=== PATIENT | male | born 1950 | race Caucasian/White ===

== ENCOUNTER 2018-03-28 11:33 | Inpatient (IN) ==
--- NOTE | 2018-03-28 11:51 | Emergency Department Note ---
Disposition Clinical Impression: Aphasia, Facial droop CVA (cerebral vascular accident) Qualifiers: CVA mechanism: unspecified Qualified Code(s): I63.9 - Cerebral infarction, unspecified Disposition: Admitted As Inpatient Condition: Fair Neuro HPI - General Stated Complaint: stroke symptoms Time Seen by Provider: 03/28/18 11:35 Source: patient, family, EMS Mode of arrival: EMS Limitations: other (speech) Nursing Notes Reviewed: Yes Vital Signs Reviewed: Yes - History of Present Illness HPI Narrative: Patient presents to the ED via EMS and was seen and evaluated immediately upon arrival. Patient is a transfer from the [facility] for possible stroke. Patient was seen at the [facility] today and the patient's sister who is also his power of bag making machine tender states that yesterday morning she noted that he had some left-sided facial puffiness and a slight droop, but think much about it. They had him outside much of the day and later that evening it was worsening that they thought it was just because he was in the sun. She states that they woke up this morning and he was having trouble speaking, slurred speech and aphasia and continued facial droop. They took him to the [facility] who got labs and a head CT. There is no acute stroke, but the patient was continuing to have symptoms. He was sent here for admission MRI and neurology consult. No previous history of CVA. No history of diabetes or coronary artery disease. There is no upper or lower extremity weakness. No fever, chills, chest pain, shortness breath, abdominal pain, nausea, vomiting, diarrhea or rash. Patient has not been on aspirin or statin therapy previously - Related Data Home Medications: Home Medications Medication Instructions Recorded Confirmed Cholecalciferol (D-3) [Vitamin D] 1,000 unit PO DAILY 03/28/18 03/28/18 Folic Acid 1 mg PO DAILY 03/28/18 03/28/18 Gabapentin [Neurontin] 300 mg PO TID 03/28/18 03/28/18 Ipratropium [place] 1 spr NS BID 03/28/18 03/28/18 Metoprolol Succinate [Toprol Xl] 100 mg PO DAILY 03/28/18 03/28/18 Naproxen 500 mg PO BID PRN 03/28/18 03/28/18 Pantoprazole Sodium 40 mg PO DAILY 03/28/18 03/28/18 Potassium Chloride [Klor-Con 10] 20 meq PO DAILY 03/28/18 03/28/18 Allergies/Adverse Reactions: Allergies Allergy/AdvReac Type Severity Reaction Status Date / Time piperacillin [From Zosyn] Allergy See Verified 05/08/17 13:44 Comments Sulfa (Sulfonamide Allergy See Verified 05/08/17 13:44 Antibiotics) Comments tazobactam [From Zosyn] Allergy See Verified 05/08/17 13:44 Comments Review of Systems: As reviewed in the HPI. All other systems reviewed are negative or normal. Past Medical History - Past Medical History Attestation: Yes The following information was validated with the patient. Source: patient Medical history: Reports: GERD, hypertension, other Surgical history: Reports: other Psychiatric history: Reports: no psych history - Social History Smoking Status: Current every day smoker Smokeless Tobacco Status: No Alcohol use: Reports: none, heavy Drug use: Reports: none Physical Exam - General Limitations: no limitations General appearance: alert, in no apparent distress - Head Head exam: atraumatic, normocephalic, normal inspection - Eye Eye exam: Present: normal appearance, PERRL, EOMI - ENT ENT exam: normal exam, mucous membranes dry - Neck Neck exam: Present: normal inspection, full ROM, trachea midline - Chest Chest inspection: Present: normal inspection, symmetric chest wall rise - Respiratory Respiratory exam: Present: normal lung sounds bilaterally - Cardiovascular Cardiovascular exam: Present: regular rate, normal rhythm, normal heart sounds - Abdominal Exam Abdominal exam: Present: soft, Non-Tender. Absent: tenderness, distention, guarding, rebound, rigidity - Extremities Exam Extremities exam: Present: normal inspection, full ROM, normal capillary refill. Absent: tenderness, pedal edema - Expanded Lower Extremity Exam Hip/Pelvis exam: Present: normal inspection, full ROM - Neurological Exam Neurological exam: Present: alert, oriented X3 - Expanded Neurological Exam Patient oriented to: Present: person, place, time Speech: Present: expressive aphasia Cranial nerves: EOM function (II, III, IV, ): Normal, facial sensation (V): Normal, facial palsy (VII): Abnormal Left (mild droop), spinal accessory function (XI): Normal, tongue deviation (XII): Normal Cerebellar function: finger to nose: Normal Motor strength - LUE: 5/5 Motor strength - RUE: 5/5 Motor strength - LLE: 5/5 Motor strength - RLE: 5/5 Upper motor neuron exam: ansley neglect: Absent bilaterally, pronator drift: Absent bilaterally Sensory exam upper extremity: light touch: Normal Sensory exam lower extremity: light touch: Normal Coma Scale Eye Opening: Spontaneous Coma Scale Motor Response: Obeys Commands Coma Scale Verbal Response: Oriented Coma Scale Total: 15 - Skin Skin exam: Present: warm, dry, intact, normal color Course Course Narrative: Patient presenting from the [facility] for admission for stroke rule out. Symptoms started over 24 hours ago and has a negative head CT. Certainly is not a candidate for TPA or thrombectomy. We will admit to the hospitalist service for MRI and carotid ultrasound and medical optimization. Lab work at outside hospital is attached to the patient's chart and included a normal white blood cell count, mild anemia with hemoglobin of 12, normal troponin, normal electrolytes. EKG was normal sinus rhythm at a rate of 92 with otherwise normal intervals and no ischemic changes. Outside hospital. Head CT showed no acute abnormality. - Reevaluation(s) Reevaluation #1: Dr. Watt accepted the patient for admission. Vital Signs Temperature 97.7 F 03/28/18 11:38 Pulse Rate 75 03/28/18 11:38 Respiratory Rate 16 03/28/18 11:38 Blood Pressure 154/89 03/28/18 11:38 O2 Sat by Pulse Oximetry 100 03/28/18 11:38 Temperature 97.7 F 03/28/18 11:38 Pulse Rate 75 03/28/18 11:38 Respiratory Rate 16 03/28/18 11:38 Blood Pressure 154/89 03/28/18 11:38 O2 Sat by Pulse Oximetry 100 03/28/18 11:38 Oxygen Delivery Oxygen Delivery Nasal Cannula NIH Stroke Scale - Level of Consciousness LOC: Alert - LOC Questions LOC Questions: Answers both correctly - LOC Commands LOC Commands: Performs both correctly - Best Gaze Best Gaze: Normal - Visual Visual: No visual loss - Facial Palsy Facial Palsy: Partial, total, or near-total paralysis of lower face - Motor Arms Motor Arm-Left: No drift for 10 seconds Motor Arm-Right: No drift for 10 seconds - Motor Legs Motor Leg-Left: No drift for 5 seconds Motor Leg-Right: No drift for 5 seconds - Limb Ataxia Limb Ataxia: Normal, No Ataxia - Sensory Sensory: Normal - Best Language Best Language: Mild to moderate aphasia. Examiner can identify picture from response - Dysarthria Dysarthria: Mild, slurs some words - Extinction and Inattention Extinction and Inattention: Normal - NIHSS Total Score NIHSS Total Score: 4 TPA Checklist - LKW: 3-4.5 hrs Add. Warnings/Precautions Patient/family understanding: The patient/family members have been counseled and understood the risk, benefit , and alternatives of treatment.
--- NOTE | 2018-03-28 12:22 | Emergency Department Note ---
Disposition Clinical Impression: Aphasia, Facial droop CVA (cerebral vascular accident) Qualifiers: CVA mechanism: unspecified Qualified Code(s): I63.9 - Cerebral infarction, unspecified Disposition: Admitted As Inpatient Condition: Fair General Adult HPI - General Chief complaint: ED Altered Mental Status Stated complaint: stroke symptoms Time Seen by Provider: 03/28/18 11:35 Source: patient, family, EMS Mode of arrival: EMS Limitations: other (speech) - History of Present Illness Pain Scale: 0 - Related Data Home Medications Medication Instructions Recorded Confirmed Cholecalciferol (D-3) [Vitamin D] 1,000 unit PO DAILY 03/28/18 03/28/18 Folic Acid 1 mg PO DAILY 03/28/18 03/28/18 Gabapentin [Neurontin] 300 mg PO TID 03/28/18 03/28/18 Ipratropium [place] 1 spr NS BID 03/28/18 03/28/18 Metoprolol Succinate [Toprol Xl] 100 mg PO DAILY 03/28/18 03/28/18 Naproxen 500 mg PO BID PRN 03/28/18 03/28/18 Pantoprazole Sodium 40 mg PO DAILY 03/28/18 03/28/18 Potassium Chloride [Klor-Con 10] 20 meq PO DAILY 03/28/18 03/28/18 Allergies Allergy/AdvReac Type Severity Reaction Status Date / Time piperacillin [From Zosyn] Allergy See Verified 05/08/17 13:44 Comments Sulfa (Sulfonamide Allergy See Verified 05/08/17 13:44 Antibiotics) Comments tazobactam [From Zosyn] Allergy See Verified 05/08/17 13:44 Comments Past Medical History - Past Medical History Medical history: Reports: GERD, hypertension, other Surgical history: Reports: other Psychiatric history: Reports: no psych history - Social History Smoking Status: Current every day smoker Smokeless Tobacco Status: No Alcohol use: Reports: none, heavy Drug use: Reports: none Physical Exam - General Limitations: other (speech) General appearance: lethargic Course Vital Signs Temperature 97.7 F 03/28/18 11:38 Pulse Rate 75 03/28/18 11:38 Respiratory Rate 16 03/28/18 11:38 Blood Pressure 154/89 03/28/18 11:38 O2 Sat by Pulse Oximetry 100 03/28/18 11:38 Temperature 97.4 F L 03/28/18 15:48 Pulse Rate 72 03/28/18 15:48 Respiratory Rate 18 03/28/18 15:48 Blood Pressure 135/87 03/28/18 15:48 O2 Sat by Pulse Oximetry 99 03/28/18 15:48 Oxygen Delivery Oxygen Delivery Nasal Cannula Medical Decision Making - Lab Data Result diagrams: 03/28/18 14:06 03/28/18 14:06 Attestation Statement - Attestation Attestation: I examined this patient and my medical decision-making was reviewed with the LOOM CHANGER/PA/Advanced Practice Nurse/Resident Physician. I agree with the documented findings, disposition and treatment plan as described except to the extent set forth below. I did see the patient upon arrival and spoke with the paramedics as well as the patient's sister he does have slurred speech since yesterday so he is not a thrombolytic candidate and the patient was initially evaluated at the [facility]. Head CT does not show any signs of hemorrhage. Patient will be admitted for further evaluation and management of acute stroke. 1222 I did review the patient's EKG showing normal sinus rhythm with a rate of approximately 88 bpm, this is a normal sinus rhythm. I do not see any ischemic changes or evidence of significant arrhythmia 1223
[2018-03-28] MEDS ORDERED: Naloxone 0.4 MG/ML INJ IVP PRN (12:52)
[2018-03-28 14:38] LABS: Basophils % 0.6 %; Eosinophils % 0.6 %; Hematocrit 36.6 % (37.5-50.1); Hemoglobin 11.9 g/dL (12.9-16.9); Immature Granulocytes % 0.4 % (0-4); Lymphocytes # 1.8 K/mcL (0.6-4.6); Lymphocytes % 33.7 %; Mean Corpuscular HGB Conc 32.5 g/dL (31.6-35.5); Mean Corpuscular Hemoglobin 27.6 pg (28.0-33.3); Mean Corpuscular Volume 84.9 fL (83.0-100.0); Mean Platelet Volume 11.5 fL (9.4-12.4); Monocytes # 0.5 K/mcL (0.0-1.3); Monocytes % 9.2 %; Neutrophils # 2.9 K/mcL (1.6-8.9); Platelet Count 154 K/mcL (140-400); Red Blood Count 4.31 M/mcL (4.19-5.50); Red Cell Distribution Width 14.5 % (11.5-14.5); Segmented Neutrophils % 55.5 %
[2018-03-28 14:45] LABS: BUN/Creatinine Ratio 24 (6-26); Blood Urea Nitrogen 26 mg/dL (8-23); Calcium 9.3 mg/dL (8.6-10.3); Carbon Dioxide 26 mEq/L (23-29); Chloride 105 mEq/L (98-107); Glucose 86 mg/dL (70-105); Osmolality,Calculated 286 (280-300); Potassium 4.8 mEq/L (3.5-5.1); Sodium 136 mEq/L (136-145); eGFR For African Americans > 60 (> 60); eGFR For Non-African Americans > 60 (> 60)
--- NOTE | 2018-03-28 15:39 | Internal Med History&Physical ---
Date of Encounter: 03/29/18 Time of Encounter: 15:30 Internal Medicine - H&P: HPI Chief complaint: slurred speech and facial droop sinc yesterday morning History of present illness: Mr. Daigle is a 68 year old male with pmh of hypertension, partial deafness presenting with complaints of slurred speech since yesterday and left facial droop this morning. Histroy was provided by patient's sister due to patient's partial deafness. she notes that they went to the [facility] and when they returned, he complained of feeling warm and sweating and she noticed what she thought was a puffy face and thought his speech was slightly slurred, but she says she thought it was because he had been in the sunlight all day. when he woke up this morning she noticed he had a facial droop and she immediately suspected he had had a stroke and took him to the ER at the [facility], from where he was transferred here. She also noticed he has been having coughing and difficulty swallowing in last 24hrs. 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) Psychiatric history: no psych history - Past Surgical History Surgical History: other Additional surgical history: toe removed, ear surgery , port in chest (removed) - Social History Smoking Status: Current every day smoker Smokeless Tobacco Status: No Alcohol use: none, heavy Drug use: none Internal Medicine - H&P: Meds Cholecalciferol (D-3) [Vitamin D] 1,000 unit PO DAILY 03/28/18 [History] Folic Acid 1 mg PO DAILY 03/28/18 [History] Gabapentin [Neurontin] 300 mg PO TID 03/28/18 [History] Ipratropium [place] 1 spr NS BID 03/28/18 [History] Metoprolol Succinate [Toprol Xl] 100 mg PO DAILY 03/28/18 [History] Naproxen 500 mg PO BID PRN 03/28/18 [History] Pantoprazole Sodium 40 mg PO DAILY 03/28/18 [History] Potassium Chloride [Klor-Con 10] 20 meq PO DAILY 03/28/18 [History] 3 Allergy/AdvReac Type Severity Reaction Status Date / Time piperacillin [From Zosyn] Allergy See Verified 05/08/17 13:44 Comments Sulfa (Sulfonamide Allergy See Verified 05/08/17 13:44 Antibiotics) Comments tazobactam [From Zosyn] Allergy See Verified 05/08/17 13:44 Comments All Systems PM: A 10-system review of systems was performed and is negative for pertinent findings except as documented above in the HPI. - Constitutional Constitutional: excessive sweating, fatigue - EENT Eyes: no change in vision, no discharge, no pain, no photophobia Ears: no ear discharge, no ear pain, no tinnitus Nose, mouth and throat: no dysphagia, no nasal discharge, no neck pain, no sore throat - Cardiovascular Cardiovascular ROS IM: no chest pain, no diaphoresis, no dyspnea, no lightheadedness, no palpitations, no syncope - Respiratory Respiratory: no cough, no dyspnea, no wheezing, no excessive phlegm production - Gastrointestinal Gastrointestinal: no abdominal pain, no diarrhea, no hematemesis, no hematochezia, no melena, no nausea, no vomiting - Musculoskeletal Musculoskeletal ROS IM: no numbness, no tingling - Integumentary Integumentary IM: no rash, no unusual bruising - Neurological Neurological ROS: abnormal speech, no confusion, no convulsions, no focal weakness, no numbness, no tingling, no tremor(s) - Hematologic/Lymphatic Hematologic/Lymphatic: no easy bruising - Constitutional Vitals: Temp Pulse Resp BP Pulse Ox 97.6 F 79 16 158/101 100 03/28/18 14:17 03/28/18 14:17 03/28/18 14:17 03/28/18 14:17 03/28/18 14:17 General appearance: Present: A&O X 3 - Head Head exam: Present: atraumatic, normocephalic - Eye Eye exam: Present: PERRL, conjuntiva pink, sclera anicteric Pupils: Present: PERRL - Neck Neck exam general surgery: Present: supple, trachea midline. Absent: lymphadenopathy - Respiratory Respiratory exam: Present: CTAB. Absent: accessory muscle use, rales, rhonchi, wheezes - Cardiovascular Cardiovascular exam: Present: RRR, +S1, +S2. Absent: diastolic murmur, gallop, rubs, systolic murmur - GI/Abdominal GI/Abdominal exam: Present: normal bowel sounds, soft, no peritoneal signs. Absent: distended, tenderness - Extremities Exam Extremities exam: Present: warm, radial pulses palpable and symmetrical. Absent : calf tenderness, cyanotic, pedal edema - Neurological Exam Neurological exam: Present: CN II-XII intact, oriented X3, no focal deficits, facial droop. Absent: pronater drift, speech deficit Additional comments: left sided facial droop - Skin Skin exam: Present: dry, intact Internal Med - H&P Results - Labs CBC & Chem 7: 03/29/18 04:17 03/29/18 04:17 Labs: Short CBC 03/28/18 Range/Units 14:06 WBC 5.2 (4.3-11.1) K/mcL Hgb 11.9 L (12.9-16.9) g/dL Hct 36.6 L (37.5-50.1) % Plt Count 154 (140-400) K/mcL Neutrophils # 2.9 (1.6-8.9) K/mcL BMP 03/28/18 14:06 Sodium 136 Potassium 4.8 Chloride 105 Carbon Dioxide 26 BUN 26 H Creatinine 1.10 Glucose 86 Calcium 9.3 - Impressions ITS Impressions Brain MRI 03/28/18 12:58 IMPRESSION: Small acute infarct within the right posterior limb of the internal capsule. Stable moderate chronic small vessel ischemic disease with associated moderate cerebral atrophy. Left posterior fossa arachnoid cyst not significantly changed. D/ / 03/28/2018 14:10:25 Jarrett Stevens MD / Margi Castellanos Interpreting Provider: Jarrett Stevens MD - Assessment and plan (1) CVA (cerebral vascular accident) Current Visit: Yes Status: Acute Assessment and plan: Acute CVA with right posterior limb internal capsule infacrt on MRI. Follow neurology recommendations. F/U carotid ultrasound and 2D echo. On aspirin and statin Qualifiers: CVA mechanism: unspecified Qualified Code(s): I63.9 - Cerebral infarction, unspecified (2) Dysphagia as late effect of cerebrovascular accident (CVA) Current Visit: Yes Status: Acute Assessment and plan: Currently NPo and on D5. Speech therapy consulted (3) Hypertension Current Visit: Yes Status: Acute Assessment and plan: will hold off starting any hypertensives for now to preserve cerebral perfusion until patient is seen by neuro Qualifiers: Qualified Code(s): I10 - Essential (primary) hypertension (4) DVT prophylaxis Current Visit: Yes Status: Acute Assessment and plan: Heparin sc - Time Spent With Patient Total time spent is greater than 50% in coordination of care (as documented) at patient's floor/unit and/or counseling patient:
[2018-03-28] MEDS: Gabapentin 300 MG CAPSULE PO SCH ×2 (15:56→20:55)
[2018-03-28] MEDS: Aspirin 81 MG TAB.CHEW PO SCH ×2 (15:56→18:54)
[2018-03-28] MEDS: D5% in 0.45% NACL 1,000 ML IVC SCH (16:20)
--- NOTE | 2018-03-28 17:10 | Neurology - Consult Note ---
Date of Encounter: 03/28/18 Time of Encounter: 17:08 Assessment and Plan (1) CVA (cerebral vascular accident) Current Visit: Yes Status: Acute Symptoms and signs are consistent with small vessel lacunar infarct. Patient needs stroke work up including carotid artery duplex, echocardiography, continue statin therapy. Agree with aspirin 81mg daily. PT evaluation. Qualifiers: CVA mechanism: unspecified Qualified Code(s): I63.9 - Cerebral infarction, unspecified History of Present Illness Chief complaint: left sided weakness HPI: Mr. Daigle is a 68 year old male with PMH significant for chronic lower back pain, HTN who developed slurred speech, left facial droop started yesterday so his symptoms started more than 24 hours already and he is considered not a tPA thrombolysis therapy. he is admitted onto the medical floor for further evaluation and treatment. MRI of brain did showed acute lacunar infarct adjacent to the right posterior limb at the thalamus. 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) Psychiatric history: no psych history - Past Surgical History Surgical History: other Additional surgical history: toe removed, ear surgery , port in chest (removed) - Social History Smoking Status: Current every day smoker Smokeless Tobacco Status: No Alcohol use: none, heavy Drug use: none - Family History Sister Living Status: Still Living Hx Family Cancer: Yes (Uterine) Mother Living Status: Hx Family Cancer: Yes (Skin) Medications and Allergies Cholecalciferol (D-3) [Vitamin D] 1,000 unit PO DAILY 03/28/18 [History] Folic Acid 1 mg PO DAILY 03/28/18 [History] Gabapentin [Neurontin] 300 mg PO TID 03/28/18 [History] Ipratropium [place] 1 spr NS BID 03/28/18 [History] Metoprolol Succinate [Toprol Xl] 100 mg PO DAILY 03/28/18 [History] Naproxen 500 mg PO BID PRN 03/28/18 [History] Pantoprazole Sodium 40 mg PO DAILY 03/28/18 [History] Potassium Chloride [Klor-Con 10] 20 meq PO DAILY 03/28/18 [History] 3 Allergy/AdvReac Type Severity Reaction Status Date / Time piperacillin [From Zosyn] Allergy See Verified 05/08/17 13:44 Comments Sulfa (Sulfonamide Allergy See Verified 05/08/17 13:44 Antibiotics) Comments tazobactam [From Zosyn] Allergy See Verified 05/08/17 13:44 Comments All Systems: The remainder of the systems were reviewed and are negative Physical Examination - Vital Signs Vital Signs: Initial Vital Signs Temp Pulse Resp BP Pulse Ox 97.7 F 75 16 154/89 100 03/28/18 11:38 03/28/18 11:38 03/28/18 11:38 03/28/18 11:38 03/28/18 11:38 - Neurologic Detailed motor examination: full strength in all major muscle groups Motor examination - right side: 01/26: deltoids, biceps, triceps, wrist flexion, wrist extension, supervisor communications and signals, hip flexors, tibialis Anterior, quadriceps, toe extension (EHL), plantarflexion Motor examination - left side: 5: deltoids, biceps, triceps, wrist flexion, wrist extension, hip flexors, supervisor communications and signals, quadriceps, tibialis Anterior, toe extension (EHL), plantarflexion Mental Status Examination: awake, alert, oriented to person, oriented to place, oriented to time, follows commands appropriately, answers questions appropriately, no agnosia, no aphasia, no aproxia Cranial nerve examination: PERRL, EOMI, visual rebollar intact, corneal reflexes brisk symmetrically, sensory to face intact, mastication intact, no facial asymmetry is present, no dysarthria, hearing is intact symmetrically, soft palate elevates bilaterally upon phonation, gag reflex intact, flexes SCM and trapezius muscles symmetrically with full power, tongue protrudes midline, no atrophy or facial fasiculations present Cerebellar examination: no dysmetria, performs finger to nose and heel to carmona symmetrically without ataxia, no gait ataxia, no truncal ataxia, no difficulty with rapid alternating movements Results - Laboratory Findings CBC and BMP: 03/28/18 14:06 03/28/18 14:06 Abnormal lab findings: Abnormal lab results Hgb 11.9 g/dL (12.9-16.9) L 03/28/18 14:06 Hct 36.6 % (37.5-50.1) L 03/28/18 14:06 MCH 27.6 pg (28.0-33.3) L 03/28/18 14:06 BUN 26 mg/dL (8-23) H 03/28/18 14:06 Consult Discharge Plan - Plan [facility]errals: [facility]Primary Care Provider[facility] -
[2018-03-28] MEDS: (Ipratropium Bromide [Ipratropium Bromide] 1 SPR) NS SCH (20:55)
[2018-03-29 05:12] LABS: Basophils % 0.7 %; Eosinophils # 0.1 K/mcL (0.0-0.6); Eosinophils % 1.2 %; Hematocrit 36.4 % (37.5-50.1); Hemoglobin 11.9 g/dL (12.9-16.9); Immature Granulocytes % 0.2 % (0-4); Lymphocytes % 32.6 %; Mean Corpuscular HGB Conc 32.7 g/dL (31.6-35.5); Mean Corpuscular Hemoglobin 27.5 pg (28.0-33.3); Mean Corpuscular Volume 84.1 fL (83.0-100.0); Mean Platelet Volume 11.6 fL (9.4-12.4); Monocytes # 0.5 K/mcL (0.0-1.3); Monocytes % 8.4 %; Neutrophils # 3.4 K/mcL (1.6-8.9); Platelet Count 156 K/mcL (140-400); Red Blood Count 4.33 M/mcL (4.19-5.50); Red Cell Distribution Width 14.4 % (11.5-14.5); Segmented Neutrophils % 56.9 %
[2018-03-29 05:24] LABS: BUN/Creatinine Ratio 24 (6-26); Blood Urea Nitrogen 20 mg/dL (8-23); Calcium 9.2 mg/dL (8.6-10.3); Carbon Dioxide 23 mEq/L (23-29); Chloride 106 mEq/L (98-107); Glucose 100 mg/dL (70-105); Magnesium 1.7 mg/dL (1.6-2.6); Osmolality,Calculated 285 (280-300); Phosphorous 3.8 mg/dL (2.7-4.5); Potassium 4.2 mEq/L (3.5-5.1); Sodium 136 mEq/L (136-145); eGFR For African Americans > 60 (> 60); eGFR For Non-African Americans > 60 (> 60)
[2018-03-29] MEDS: Aspirin 81 MG TAB.CHEW PO SCH (08:20)
[2018-03-29] MEDS: Metoprolol XL (24 HR) Succ 50 MG TAB.ER.24H PO SCH (08:21)
[2018-03-29] MEDS: Cholecalciferol (D-3) 1,000 UNIT TABLET PO SCH (08:21)
[2018-03-29] MEDS: Gabapentin 300 MG CAPSULE PO SCH ×3 (08:21→20:31)
[2018-03-29] MEDS: Folic Acid 1 MG TABLET PO SCH (08:21)
--- NOTE | 2018-03-29 09:02 | Neurology Progress Note ---
Date of Encounter: 03/29/18 Time of Encounter: 09:00 Assessment and Plan (1) CVA (cerebral vascular accident) Current Visit: Yes Status: Acute Symptoms and signs are consistent with small vessel lacunar infarct. Patient needs stroke work up including carotid artery duplex, (already done) Will obtain CTA of neck. If ICA stenosis more than 70% then will consult vascular. If less than 70% will continue medical treatment only. Await echocardiography, continue statin therapy. Agree with aspirin 81mg daily. PT evaluation. Qualifiers: CVA mechanism: unspecified Qualified Code(s): I63.9 - Cerebral infarction, unspecified Subjective Principal diagnosis: CVA Interval history: Patient seen and examined. Symptoms are stable. Still slightly dysarthric. No new complaints. Is on Aspirin 81mg daily. Carotid artery duplex showed bilateral ICA 60-79% stenosis. Echocardiography pending. Objective - Constitutional Vitals: Temp Pulse Resp BP Pulse Ox 97.7 F 85 20 126/82 100 03/29/18 07:08 03/29/18 07:08 03/29/18 07:08 03/29/18 07:08 03/29/18 07:08 - Neurological Exam Motor Examination: Present: full strength in all major muscle groups Motor examination - right side: 5/5: deltoids, biceps, triceps, wrist flexion, wrist extension, retail merchandising specialist, hip flexors, tibialis Anterior, quadriceps, toe extension (EHL), plantarflexion Motor examination - left side: 5/5: deltoids, biceps, triceps, wrist flexion, wrist extension, hip flexors, retail merchandising specialist, quadriceps, tibialis Anterior, toe extension (EHL), plantarflexion Mental Status Examination: Present: awake, alert, oriented to person, oriented to place, oriented to time, follows commands appropriately, answers questions appropriately, no agnosia, no aphasia, no aproxia Cranial nerve examination: Present: PERRL, EOMI, visual rebollar intact, corneal reflexes brisk symmetrically, sensory to face intact, mastication intact, no facial asymmetry is present (Left facial droop noted), no dysarthria, hearing is intact symmetrically, soft palate elevates bilaterally upon phonation, gag reflex intact, flexes SCM and trapezius muscles symmetrically with full power, tongue protrudes midline, no atrophy or facial fasiculations present Cerebellar examination: Present: no dysmetria, performs finger to nose and heel to carmona symmetrically without ataxia, no gait ataxia, no truncal ataxia, no difficulty with rapid alternating movements Results - Laboratory Findings CBC and BMP: 03/29/18 04:17 03/29/18 04:17 Abnormal lab findings: Abnormal lab results Hgb 11.9 g/dL (12.9-16.9) L 03/29/18 04:17 Hct 36.4 % (37.5-50.1) L 03/29/18 04:17 MCH 27.5 pg (28.0-33.3) L 03/29/18 04:17 LDL Cholesterol, Calc 102 mg/dL (0-99) H 03/29/18 04:17 HDL Cholesterol 31 mg/dL (40-59) L 03/29/18 04:17 Cholesterol/HDL Ratio 5.0 (0-4.9) H 03/29/18 04:17 - Diagnostic Findings Additional findings: Bilateral 60-79% stenosis. Right ICA distal and Left ICA proximal to distal. Higher velocities on the Left. Recommendations: Risk Factor Modification, Medical Therapy, and Follow up exam 12 months. Findings Carotid Duplex: Right: There is nonstenotic plaque in the right mid common carotid artery. There is nonstenotic plaque in the right distal common carotid artery. There is smooth heterogeneous plaque. There is nonstenotic plaque in the right bifurcation. There is smooth heterogeneous plaque. There is nonstenotic plaque in the right proximal internal carotid artery. There is irregular heterogeneous plaque. There is 40-59% stenosis in the right mid internal carotid artery. There is irregular heterogeneous plaque. There is 60-79% stenosis in the right distal internal carotid artery. There is irregular heterogeneous plaque. Left: There is nonstenotic plaque in the left proximal common carotid artery. There is nonstenotic plaque in the left mid common carotid artery. There is smooth heterogeneous plaque. There is nonstenotic plaque in the left distal common carotid artery. There is smooth heterogeneous plaque. There is nonstenotic plaque in the left bifurcation. There is smooth heterogeneous plaque. There is 60-79% stenosis in the left proximal internal carotid artery. There is smooth heterogeneous plaque. There is 60-79% stenosis in the left mid internal carotid artery. There is smooth heterogeneous plaque. There is 60-79% stenosis in the left distal internal carotid artery. There is smooth heterogeneous plaque. Prior Study: No prior study available for comparison. Risk Factor Modification, Medical Therapy, and Follow up exam 12 months. Carotid Results Right PSV EDV Assessment Proximal CCA 117 30 Mid CCA 75 18 Non Stenotic Plaque Distal CCA 93 24 Non Stenotic Plaque Bifurcation 74 20 Non Stenotic Plaque Proximal ICA 103 23 Non Stenotic Plaque Mid ICA 114 43 40-59% stenosis Distal ICA 147 45 60-79% stenosis ECA 103 11 Vertebral Artery 89 17 Antegrade Flow Left PSV EDV Assessment Proximal CCA 94 21 Non Stenotic Plaque Mid CCA 113 26 Non Stenotic Plaque Distal CCA 95 21 Non Stenotic Plaque Bifurcation 92 21 Non Stenotic Plaque Proximal ICA 240 68 60-79% stenosis Mid ICA 177 50 60-79% stenosis Distal ICA 151 46 60-79% stenosis ECA 101 17 Vertebral Artery 36 12 Antegrade Flow Ratio's Right ICA/CCA Ratio: 1.96 ICA/CCA Values: 147/75 Left ICA/CCA Ratio: 2.12 ICA/CCA Values: 240/113 Updated by Manolo Mejia MD on 03/29/2018 7:24:22 AM electronically signed on 03/29/2018 7:24:57 AM with status of Final MRI OF THE BRAIN WITHOUT CONTRAST 03/28/2018 1:51 pm TECHNIQUE: Multiplanar multisequence MRI of the brain was performed without the administration of intravenous contrast. COMPARISON: 03/21/2016 HISTORY: ORDERING SYSTEM PROVIDED HISTORY: acute cva Additional tech notes: cfs @ 1305 - crl FINDINGS: INTRACRANIAL STRUCTURES/VENTRICLES: Small acute infarct is identified within the right posterior limb of the internal capsule. Moderate chronic small vessel ischemic disease is identified within the periventricular white matter. There is moderate cerebral atrophy. Left posterior fossa arachnoid cyst is identified. The left cerebral hemisphere additionally appears to be atrophic. No mass effect or midline shift. No evidence of an acute intracranial hemorrhage. The ventricles and sulci are normal in size and configuration. The sellar/suprasellar regions appear unremarkable. The normal signal voids within the major intracranial vessels appear maintained. ORBITS: The visualized portion of the orbits demonstrate no acute abnormality. SINUSES: The visualized paranasal sinuses and mastoid air cells are well aerated. BONES/SOFT TISSUES: The bone marrow signal intensity appears normal. The soft tissues demonstrate no acute abnormality. MR/MR head/brain wo con IMPRESSION: Small acute infarct within the right posterior limb of the internal capsule. Stable moderate chronic small vessel ischemic disease with associated moderate cerebral atrophy. Left posterior fossa arachnoid cyst not significantly changed. D/ / 03/28/2018 14:10:25 Jarrett Stevens MD / Margi Castellanos Interpreting Provider: Jarrett Stevens MD Consult Discharge Plan - Plan [facility]errals: [facility] [Primary Care Provider] -
[2018-03-29] MEDS ORDERED: Isovue-370 500 ML INFUS..BTL IV ONE (09:07)
--- NOTE | 2018-03-29 11:57 | Electrocardiograph Report ---
[address] [address] Test Date: 2018-03-28 Pat Name: Arnold Daigle Department: 104 Room: [facility] Gender: M Kiln Charger: DHIRAJ : 1950 Requested By: Chadwick Watt Order Number: [id number] Reading MD: Isaiah Borges Measurements Intervals [place] Rate: 81 P: IN: 0 QRS: 0 QRSD: 0 T: 0 QT: 0 QTc: 0 Interpretive Statements SINUS RHYTHM Electronically Signed On 03-29-2018 11:55:46 EDT by Isaiah Borges
--- NOTE | 2018-03-29 13:03 | Internal Med Progress Note ---
Date of Encounter: 03/29/18 Time of Encounter: 08:30 - Assessment and plan (1) CVA (cerebral vascular accident) Current Visit: Yes Status: Acute Assessment and plan: Acute CVA with right posterior limb internal capsule infarct on MRI. Pt with obvious left facial droop and slurred speech. CTA neck shows 50% stenosis proximal left ICA, extensive irregular atherosclerotic plaque in proximal descending thoracic aorta, severe focal stenosis of left posterior cerebral arteries P2 segment. Echocardiogram shows LVEF of 60-65%, mild LV DD, no significant valvular dysfunction and no PFO noted with agitated saline. Bilateral carotids show 60-79% stenosis, right ICA distal and left ICA proximal to distal Patient has been evaluated by neurology, recommend consult with vascular if ICA stenosis is greater than 70%. Continue aspirin and statin Continue telemetry PT/OT recommend SNF. SS consult in and pending. Continue nectar thin liquids Monitor for safety and falls Qualifiers: CVA mechanism: unspecified Qualified Code(s): I63.9 - Cerebral infarction, unspecified (2) Hypertension Current Visit: Yes Status: Acute Assessment and plan: Pt is not on any oral antihypertensives. Blood pressure is well controlled currently. [place] hold off on starting medications to preserve cerebral function. Continue to monitor pt and vitals. Qualifiers: Hypertension type: unspecified Qualified Code(s): I10 - Essential (primary ) hypertension (3) Dysphagia as late effect of cerebrovascular accident (CVA) Current Visit: Yes Status: Acute Assessment and plan: Speech consulted, ordered nectar thick liquids Continue speech therapy (4) DVT prophylaxis Current Visit: Yes Status: Acute Assessment and plan: Heparin SQ - Time Spent With Patient Total time spent is greater than 50% in coordination of care (as documented) at patient's floor/unit and/or counseling patient: less than 15 minutes - Subjective Interval history: Pt was seen and assessed at 0830. He is alert and awake, oriented, answers questions appropriately. Pt denies headache or blurred vision. Pt has obvious left facial droop and slurred speech. Patient denies chest pain, shortness of breath, abdominal pain, nausea or vomiting. - Constitutional Vitals: Temp Pulse Resp BP Pulse Ox 97.8 F 83 20 158/93 95 03/29/18 11:36 03/29/18 11:36 03/29/18 11:36 03/29/18 11:36 03/29/18 11:36 General appearance: Present: cooperative, A&O X 3, pleasant, no acute distress, answers questions appropriately - Head Head exam: Present: atraumatic, normal inspection, normocephalic - Eye Eye exam: Present: EOMI, normal appearance, conjuntiva pink, sclera anicteric. Absent: nystagmus - Neck Neck exam general surgery: Present: supple, trachea midline. Absent: lymphadenopathy - Respiratory Respiratory exam: Present: CTAB. Absent: accessory muscle use, rales, rhonchi, wheezes - Cardiovascular Cardiovascular exam: Present: RRR, +S1, +S2. Absent: diastolic murmur, gallop, rubs, systolic murmur - GI/Abdominal GI/Abdominal exam: Present: normal bowel sounds, soft, no peritoneal signs. Absent: distended, hepatomegaly, tenderness - Extremities Exam Extremities exam: Present: normal capillary refill, normal inspection, warm, radial pulses palpable and symmetrical. Absent: calf tenderness, cyanotic, pedal edema, tenderness - Neurological Exam Neurological exam: Present: alert, CN II-XII intact, oriented X3, no focal deficits, strengths equal and symetr throughout, facial droop, speech deficit. Absent: motor sensory deficit, pronater drift - Skin Skin exam: Present: dry, intact, normal color, warm. Absent: rash Internal Medicine: Result - Labs CBC & Chem 7: 03/29/18 04:17 03/29/18 04:17 Labs: Short CBC 03/28/18 03/29/18 Range/Units 14:06 04:17 WBC 5.2 6.0 (4.3-11.1) K/mcL Hgb 11.9 L 11.9 L (12.9-16.9) g/dL Hct 36.6 L 36.4 L (37.5-50.1) % Plt Count 154 156 (140-400) K/mcL Neutrophils # 2.9 3.4 (1.6-8.9) K/mcL BMP 03/28/18 03/29/18 14:06 04:17 Sodium 136 136 Potassium 4.8 4.2 Chloride 105 106 Carbon Dioxide 26 23 BUN 26 H 20 Creatinine 1.10 0.83 Glucose 86 100 Calcium 9.3 9.2 - Impressions Impressions Brain MRI 03/28/18 12:58 IMPRESSION: Small acute infarct within the right posterior limb of the internal capsule. Stable moderate chronic small vessel ischemic disease with associated moderate cerebral atrophy. Left posterior fossa arachnoid cyst not significantly changed. D/ / 03/28/2018 14:10:25 Jarrett Stevens MD / Margi Castellanos Interpreting Provider: Jarrett Stevens MD Echocardiogram 03/28/18 13:00 Impressions: LVEF 60-65%. Normal LV chamber size, wall thickness and function. Mild left ventricular diastolic dysfunction. Normal right ventricular structure and function. No evidence of pulmonary hypertension. No significant valvular dysfunction. Negative agitated saline study for intracardiac shunting. Left Ventricular Wall Motion: Rest Echo Findings All wall segments showed normal motion. Findings: Study Quality * Technically adequate exam. ECG Findings * Normal sinus rhythm. Left Ventricle * LVEF 60-65%. * Normal LV chamber size, wall thickness and function. * Mild left ventricular diastolic dysfunction. Right Ventricle * Normal right ventricular structure and function. Left Atrium * Mildly dilated left atrium. Right Atrium * Normal right atrial size. Aortic Valve * Trileaflet aortic valve. * No aortic regurgitation. * No aortic stenosis. Mitral Valve * Normal mitral valve structure and function. * No mitral stenosis. * Trace mitral regurgitation. Tricuspid Valve * Normal tricuspid valve structure and function. * Trace tricuspid regurgitation. * No evidence of pulmonary hypertension. Pulmonic Valve * Pulmonic valve not well visualized. Aorta * Normally sized aortic root. Pericardium * The pericardium appears normal. IVC * Normal IVC dimensions and inspiratory collapse. Pulmonary Artery * Normal visualized portions of the main pulmonary artery. Chest X-Ray 03/28/18 15:21 IMPRESSION: No acute abnormality detected. D/ / Raciel Patel MD / Raciel Patel MD Interpreting Provider: Raciel Patel MD Angiography CT 03/29/18 09:07 IMPRESSION: 1. There is 50% stenosis of the proximal left internal carotid artery. 2. Extensive irregular atherosclerotic plaque in the proximal descending thoracic aorta. 3. Severe focal stenosis of the left posterior cerebral artery P2 segment. D/ /29/2018 11:27:47 Julito Whitehead MD / ra Interpreting Provider: Julito Whitehead MD Neck CTA 03/29/18 09:07 IMPRESSION: 1. There is 50% stenosis of the proximal left internal carotid artery. 2. Extensive irregular atherosclerotic plaque in the proximal descending thoracic aorta. 3. Severe focal stenosis of the left posterior cerebral artery P2 segment. D/ / 03/29/2018 11:27:47 Julito Whitehead MD / ra Interpreting Provider: Julito Whitehead MD Consult Discharge Plan - Plan [facility]errals: [facility] [Primary Care Provider] -
[2018-03-29] MEDS: (Ipratropium Bromide [Ipratropium Bromide] 1 SPR) NS SCH ×2 (14:51→20:31)
--- NOTE | 2018-03-29 16:51 | Neurology Progress Note ---
Date of Encounter: 03/29/18 Time of Encounter: 16:49 Assessment and Plan (1) CVA (cerebral vascular accident) Current Visit: Yes Status: Acute Small vessel lacunar infarct involving BG close to the internal capsule on the right side. Likely small vessel etiology. Continue Aspirin 81mg daily and continue statin therapy. Risk factor modification for CVA recommended. Stroke work up completed including echo, carotid artery duplex, CTA of neck and brain. Okay to discharge from neurology perspective. Will sign off at this time. please call if any questions Qualifiers: CVA mechanism: unspecified Qualified Code(s): I63.9 - Cerebral infarction, unspecified Subjective Principal diagnosis: CVA Interval history: Patient seen and examined. Symptoms are stable. Still slightly dysarthric. No new complaints. Is on Aspirin 81mg daily. CTA of neck showed left ICA 50% stenosis and 20% right ICA. echocardiography showed LVEF 60% no significant regional wall motion abnormality. No PFO and no significant valvular dysfunction. Objective - Constitutional Vitals: Temp Pulse Resp BP Pulse Ox 97.8 F 83 20 158/93 95 03/29/18 11:36 03/29/18 11:36 03/29/18 11:36 03/29/18 11:36 03/29/18 11:36 - Neurological Exam Motor Examination: Present: full strength in all major muscle groups Motor examination - right side: 5/5: deltoids, biceps, triceps, wrist flexion, wrist extension, gas plumbing inspector, hip flexors, tibialis Anterior, quadriceps, toe extension (EHL), plantarflexion Motor examination - left side: 5/5: deltoids, biceps, triceps, wrist flexion, wrist extension, hip flexors, gas plumbing inspector, quadriceps, tibialis Anterior, toe extension (EHL), plantarflexion Mental Status Examination: Present: awake, alert, oriented to person, oriented to place, oriented to time, follows commands appropriately, answers questions appropriately, no agnosia, no aphasia, no aproxia Cranial nerve examination: Present: PERRL, EOMI, visual rebollar intact, corneal reflexes brisk symmetrically, sensory to face intact, mastication intact, no facial asymmetry is present (Left facial droop noted), no dysarthria (Mild to moderate dysarthria noted, language content is normal), hearing is intact symmetrically, soft palate elevates bilaterally upon phonation, gag reflex intact, flexes SCM and trapezius muscles symmetrically with full power, tongue protrudes midline (Tongue protrude to the left side), no atrophy or facial fasiculations present Cerebellar examination: Present: no dysmetria, performs finger to nose and heel to carmona symmetrically without ataxia, no gait ataxia, no truncal ataxia, no difficulty with rapid alternating movements Results - Laboratory Findings CBC and BMP: 03/29/18 04:17 03/29/18 04:17 Abnormal lab findings: Abnormal lab results Hgb 11.9 g/dL (12.9-16.9) L 03/29/18 04:17 Hct 36.4 % (37.5-50.1) L 03/29/18 04:17 MCH 27.5 pg (28.0-33.3) L 03/29/18 04:17 LDL Cholesterol, Calc 102 mg/dL (0-99) H 03/29/18 04:17 HDL Cholesterol 31 mg/dL (40-59) L 03/29/18 04:17 Cholesterol/HDL Ratio 5.0 (0-4.9) H 03/29/18 04:17 Consult Discharge Plan - Plan Referrals: [facility] [Primary Care Provider] -
[2018-03-29] MEDS: D5% in 0.45% NACL 1,000 ML IVC SCH (20:26)
[2018-03-30] MEDS: Cholecalciferol (D-3) 1,000 UNIT TABLET PO SCH (09:28)
[2018-03-30] MEDS: Gabapentin 300 MG CAPSULE PO SCH (09:28)
[2018-03-30] MEDS: Folic Acid 1 MG TABLET PO SCH (09:28)
[2018-03-30] MEDS: Aspirin 81 MG TAB.CHEW PO SCH (09:29)
[2018-03-30] MEDS: Metoprolol XL (24 HR) Succ 50 MG TAB.ER.24H PO SCH (09:29)
[2018-03-30] MEDS: (Ipratropium Bromide [Ipratropium Bromide] 1 SPR) NS SCH (09:30)
[2018-03-30 11:23] VITALS: BP 136/86
--- NOTE | 2018-03-30 12:37 | Internal Med Progress Note ---
Date of Encounter: 03/30/18 Time of Encounter: 09:15 - Assessment and plan (1) CVA (cerebral vascular accident) Current Visit: Yes Status: Acute Assessment and plan: Acute CVA with right posterior limb internal capsule infarct on MRI. Pt with obvious left facial droop and slurred speech. CTA neck shows 50% stenosis proximal left ICA, extensive irregular atherosclerotic plaque in proximal descending thoracic aorta, severe focal stenosis of left posterior cerebral arteries P2 segment. Echocardiogram shows LVEF of 60-65%, mild LV DD, no significant valvular dysfunction and no PFO noted with agitated saline. Bilateral carotids show 60-79% stenosis, right ICA distal and left ICA proximal to distal Patient has been evaluated by neurology, recommend consult with vascular if ICA stenosis is greater than 70%. I did speak with vascular yesterday, pt will need follow up outpatient. Today, pt is insistent that he is going home and refuses to go to ECF. Sister is at bedside and agrees that he is at his baseline and states that she lives next door to him and provides all of his care now as it is. Sister states that [facility] and would like to have PT/OT in his home through the [facility]. She states that despite the speech difficulty, this is his baseline due to multiple surgeries throughout his life on bilateral ears for hearing loss. I did watch pt ambulate with a walker with PT, sister followed, again, she reports that he is at his baseline and is gait is the same as it always is. Pt will be discharged home and sister will contact the [facility] for PT/[facility] services, states that she has done this in the past and he has had PT/OT through the [facility] in the past. Pt has a walker at home and "he has everything he needs." Continue aspirin and statin Continue telemetry PT/OT recommend SNF. Continue nectar thin liquids Monitor for safety and falls Qualifiers: CVA mechanism: unspecified Qualified Code(s): I63.9 - Cerebral infarction, unspecified (2) Hypertension Current Visit: Yes Status: Acute Assessment and plan: Pt is not on any oral antihypertensives. Blood pressure is well controlled currently. [place] hold off on starting medications to preserve cerebral function. Follow with PCP as scheduled. Qualifiers: Hypertension type: unspecified Qualified Code(s): I10 - Essential (primary ) hypertension (3) Dysphagia as late effect of cerebrovascular accident (CVA) Current Visit: Yes Status: Acute Assessment and plan: Speech consulted, ordered nectar thick liquids Continue speech therapy through the [facility] after discharge. Sister states that speech is at baseline. (4) DVT prophylaxis Current Visit: Yes Status: Acute Assessment and plan: Heparin SQ, pt has been ambulatory. - Time Spent With Patient Total time spent is greater than 50% in coordination of care (as documented) at patient's floor/unit and/or counseling patient: less than 15 minutes - Subjective Interval history: Pt was seen and assessed at 0915. He is alert and awake, oriented, answers questions appropriately. Sister is at bedside. She lives next door to him and reports that she "assumed care of him about 2 years ago and he has come a long way." Pt denies headache or blurred vision. Pt has obvious left facial droop and slurred speech, which has improved. Patient denies chest pain, shortness of breath, abdominal pain, nausea or vomiting. - Constitutional Vitals: Temp Pulse Resp BP Pulse Ox 97.7 F 98 16 136/86 97 03/30/18 11:21 03/30/18 11:21 03/30/18 11:21 03/30/18 11:21 03/30/18 11:21 General appearance: Present: cooperative, A&O X 3, pleasant, no acute distress, answers questions appropriately - Head Head exam: Present: atraumatic, normal inspection, normocephalic - Eye Eye exam: Present: normal appearance, conjuntiva pink, sclera anicteric - Neck Neck exam general surgery: Present: supple, trachea midline. Absent: lymphadenopathy, tenderness - Respiratory Respiratory exam: Present: CTAB. Absent: accessory muscle use, chest wall tenderness, decreased breath sounds, rales, respiratory distress, rhonchi, wheezes - Cardiovascular Cardiovascular exam: Present: RRR, +S1, +S2. Absent: diastolic murmur, gallop, rubs, systolic murmur - GI/Abdominal GI/Abdominal exam: Present: normal bowel sounds, soft. Absent: distended, hepatomegaly, tenderness - Extremities Exam Extremities exam: Present: normal capillary refill, normal inspection, warm, radial pulses palpable and symmetrical. Absent: calf tenderness, cyanotic, pedal edema, tenderness - Neurological Exam Neurological exam: Present: alert, oriented X3, no focal deficits. Absent: facial droop, speech deficit - Skin Skin exam: Present: dry, intact, normal color, warm. Absent: rash Internal Medicine: Result - Labs CBC & Chem 7: 03/29/18 04:17 03/29/18 04:17 Consult Discharge Plan - Plan [facility]errals: [facility] [Primary Care Provider] -
--- NOTE | 2018-03-30 12:52 | Discharge Summary ---
- NOTES TO OUTPATIENT PROVIDER Notes to Outpatient Provider: [facility] Monitor BP, permissive HTN after CVA, well controlled at discharge. Date of Encounter: 03/30/18 Time of Encounter: 09:15 - Discharge Diagnosis (1) CVA (cerebral vascular accident) Priority: Primary Status: Acute Assessment and Plan: Acute CVA with right posterior limb internal capsule infarct on MRI. Pt with obvious left facial droop and slurred speech. CTA neck shows 50% stenosis proximal left ICA, extensive irregular atherosclerotic plaque in proximal descending thoracic aorta, severe focal stenosis of left posterior cerebral arteries P2 segment. Echocardiogram shows LVEF of 60-65%, mild LV DD, no significant valvular dysfunction and no PFO noted with agitated saline. Bilateral carotids show 60-79% stenosis, right ICA distal and left ICA proximal to distal Patient has been evaluated by neurology, recommend consult with vascular if ICA stenosis is greater than 70%. I did speak with vascular yesterday, pt will need follow up outpatient. Today, pt is insistent that he is going home and refuses to go to ECF. Sister is at bedside and agrees that he is at his baseline and states that she lives next door to him and provides all of his care now as it is. Sister states that he is [facility] and would like to have PT/OT in his home through the [facility]. She states that despite the speech difficulty, this is his baseline due to multiple surgeries throughout his life on bilateral ears for hearing loss. I did watch pt ambulate with a walker with PT, sister followed, again, she reports that he is at his baseline and is gait is the same as it always is. Pt will be discharged home and sister will contact the [facility] for PT/OT services, states that she has done this in the past and he has had PT/OT through the [facility] in the past. Pt has a walker at home and "he has everything he needs." Pt is alert, oriented, answers questions appropriately. He states that he has 4 cats at home that he has to care for and is not going to ECF. Continue aspirin and statin Continue telemetry PT/OT recommend SNF. Continue nectar thin liquids Monitor for safety and falls Qualifiers: CVA mechanism: unspecified Qualified Code(s): I63.9 - Cerebral infarction, unspecified (2) Hypertension Priority: Secondary Status: Chronic Assessment and Plan: Pt is not on any oral antihypertensives. Blood pressure is well controlled currently. Alban hold off on starting medications to preserve cerebral function. Follow with PCP as scheduled. Qualifiers: Hypertension type: unspecified Qualified Code(s): I10 - Essential (primary ) hypertension (3) Dysphagia as late effect of cerebrovascular accident (CVA) Priority: Secondary Status: Acute Assessment and Plan: Speech consulted, ordered nectar thick liquids Continue speech therapy [facility] the [facility] after discharge. Sister states that speech is at baseline. (4) DVT prophylaxis Priority: Secondary Status: Acute Assessment and Plan: Heparin SQ, pt has been ambulatory. Hospital course: Mr. Daigle is a 68 year old male with PMH of alcoholism (per sister), upper GI hemorrhage, tobacco abuse, Meniere's, hypertension. Patient presented to the emergency room with facial droop and slurred speech. MRI positive for acute CVA. Echocardiogram with preserved EF and no significant valvular dysfunction, chest x-ray is negative, carotid Doppler showed 60-79% stenosis bilaterally of ICAs, CT a of the neck showed 50% stenosis of proximal left ICA, extensive irregular atherosclerotic plaque in the proximal descending thoracic aorta, and severe focal stenosis of the left posterior cerebral artery P2 segment. Per sister, patient is back to baseline even for speech which remained slurred. He was evaluated by physical therapy, they have recommended ECF for rehabilitation. Patient is adamant that he is not going to ECF and he is going home. His sister lives next to him and is very supportive and is his normal primary caregiver. Again she states that he has returned to his baseline and that he should be able to return home. She will [facility] with [facility] to get [facility] in the home. Vitals and labs are stable and within normal limits. Patient will be discharged home in stable condition. Discharge discussed with: patient, family, nurse - Time Spent with Patient Total time spent providing and/or coordinating discharge services: Less than 30 minutes - Discharge Medications Prescriptions: Aspirin 81 mg PO DAILY #30 tab.chew Atorvastatin [Lipitor] 40 mg PO HS #30 tablet Home Medications: Cholecalciferol (D-3) [Vitamin D] 1,000 unit PO DAILY 03/28/18 [History] Folic Acid 1 mg PO DAILY 03/28/18 [History] Gabapentin [Neurontin] 300 mg PO TID 03/28/18 [History] Ipratropium [place] 1 spr NS BID 03/28/18 [History] Metoprolol Succinate [Toprol Xl] 100 mg PO DAILY 03/28/18 [History] Pantoprazole Sodium 40 mg PO DAILY 03/28/18 [History] Potassium Chloride [Klor-Con 10] 20 meq PO DAILY 03/28/18 [History] Aspirin 81 mg PO DAILY #30 tab.chew 03/30/18 [Rx] Atorvastatin [Lipitor] 40 mg PO HS #30 tablet 03/30/18 [Rx] Allergies/Adverse Reactions: 3 Allergy/AdvReac Type Severity Reaction Status Date / Time piperacillin [From Zosyn] Allergy See Verified 05/08/17 13:44 Comments Sulfa (Sulfonamide Allergy See Verified 05/08/17 13:44 Antibiotics) Comments tazobactam [From Zosyn] Allergy See Verified 05/08/17 13:44 Comments Date of admission: 03/28/18 12:27 Primary care physician: [facility] Consults: 03/28/18 12:54 Consult to Physical Therapy [CONS] Routine Comment: Evaluate, develop and implement POC Reason for Consult: acute CVA Does patient have active BEDREST order?: No Is patient medically & hemodynamically stable?: Yes Patient assessed for mobility or mobilized this visit?: Yes 03/28/18 14:13 Consult to Neurology [CONS] Routine Consulting Provider: Neurology [facility] Reason for Consult: acute cva with internal capsule infarct Call Completed: Yes 03/28/18 14:47 Consult to Occupational Therapy [CONS] Routine Comment: Evaluate, develop and implement POC Reason for Consult: Stroke Does patient have active BEDREST order?: No Is patient medically & hemodynamically stable?: Yes Patient assessed for mobility or mobilized this visit?: No Consult to Speech Therapy [CONS] Routine Comment: Evaluate, develop and implement POC Reason for Consult: Trouble swallowing Call Completed: Yes 03/29/18 13:22 Consult to Circuit Board Repair Technician [CONS] Routine Reason for SW Consult: Discharge planning. S/p CVA, PT recommends SNF at discharge. Discharging clinician: Chayo Martinez Anticipated date of discharge: 03/30/18 - Constitutional Vitals: Temp Pulse Resp BP Pulse Ox 97.7 F 98 16 136/86 97 03/30/18 11:21 03/30/18 11:21 03/30/18 11:21 03/30/18 11:21 03/30/18 11:21 General appearance: Present: cooperative, A&O X 3, pleasant, no acute distress, answers questions appropriately - Head Head exam: Present: atraumatic, normal inspection, normocephalic - Eye Eye exam: Present: normal appearance, conjuntiva pink, sclera anicteric Pupils: Present: PERRL - Neck Neck exam general surgery: Present: normal inspection, supple, trachea midline. Absent: lymphadenopathy, tenderness - Respiratory Respiratory exam: Present: CTAB. Absent: accessory muscle use, chest wall tenderness, rales, respiratory distress, rhonchi, wheezes - Cardiovascular Cardiovascular exam: Present: RRR, +S1, +S2. Absent: diastolic murmur, gallop, rubs, systolic murmur - GI/Abdominal GI/Abdominal exam: Present: normal bowel sounds, soft, no peritoneal signs. Absent: distended, hepatomegaly, tenderness - Extremities Exam Extremities exam: Present: normal capillary refill, warm, radial pulses palpable and symmetrical. Absent: calf tenderness, cyanotic, pedal edema, tenderness - Neurological Exam Neurological exam: Present: alert, normal gait, oriented X3, no focal deficits, facial droop, speech deficit. Absent: motor sensory deficit - Skin Skin exam: Present: dry, intact, normal color, warm. Absent: rash - Patient Status Disposition: Home, Self-Care Condition: Good Overall status at discharge: patient is progressing back to baseline - Discharge Instructions [facility] With: [facility] [Primary Care Provider] - Additional Instructions: Please follow up with your PCP in the next 5-7 days for a recheck . Take your medications as directed. Return to the ER as needed for any other problems or concerns, or if your symptoms return or worsen. Make sure that you are using your walker when you are up and about. Return to your normal diet and activities as tolerated. - Diet and Activity Activity: resume usual activities as tolerated Diet: advance to your usual diet
--- NOTE | 2018-03-30 14:35 | Physician Discharge Referral ---
Home Health/Hosp Referral Info Transfer to: Home Health Provider in Charge Post Discharge: PCP - Diagnosis (1) CVA (cerebral vascular accident) Priority: Primary Status: Acute (2) Hypertension Priority: Secondary Status: Chronic (3) Dysphagia as late effect of cerebrovascular accident (CVA) Priority: Secondary Status: Acute (4) DVT prophylaxis Priority: Secondary Status: Acute - Respiratory Orders Smoking Cessation: Smoking cessation has been advised. For more information, call the [place] Tobacco Quit Line at 6-861-WDUV-NOW. - Diet/Nutrition Diet/Nutrition Orders: Mechanical Soft Diet/Nutrition: List: nectar thickened liquids - Activity Activity Orders: Up ad rachel, Walker - Services Needed Following services are medically necessary services: Nursing, Home Health Aide, Physical Therapy, Occupational Therapy - Transfer Medications Prescriptions: Aspirin 81 mg PO DAILY #30 tab.chew Atorvastatin [Lipitor] 40 mg PO HS #30 tablet Home Medications: Cholecalciferol (D-3) [Vitamin D] 1,000 unit PO DAILY 03/28/18 [History] Folic Acid 1 mg PO DAILY 03/28/18 [History] Gabapentin [Neurontin] 300 mg PO TID 03/28/18 [History] Ipratropium [place] 1 spr NS BID 03/28/18 [History] Metoprolol Succinate [Toprol Xl] 100 mg PO DAILY 03/28/18 [History] Pantoprazole Sodium 40 mg PO DAILY 03/28/18 [History] Potassium Chloride [Klor-Con 10] 20 meq PO DAILY 03/28/18 [History] Aspirin 81 mg PO DAILY #30 tab.chew 03/30/18 [Rx] Atorvastatin [Lipitor] 40 mg PO HS #30 tablet 03/30/18 [Rx] Allergies/Adverse Reactions: 3 Allergy/AdvReac Type Severity Reaction Status Date / Time piperacillin [From Zosyn] Allergy See Verified 05/08/17 13:44 Comments Sulfa (Sulfonamide Allergy See Verified 05/08/17 13:44 Antibiotics) Comments tazobactam [From Zosyn] Allergy See Verified 05/08/17 13:44 Comments Certification: Further, I certify that my clinical findings support that this patient is homebound (i.e. absences from home require considerable and taxing effort and are for medical reasons or congregational services or infrequently or short duration when for other reasons) because: Homebound Reason: Patient requires assistance of a person or device to safely leave home, Leaving home requires considerable and taxing effort due to condition Attestation: My signature below is to certify that this patient is under my care and that I, or nurse practitioner, or a physician's virtual office assistant working with me, has a face-to -face encounter with this patient.
== END 2018-03-30 16:11 | disposition home or self-care (01) | DRG 66 ==
LOC: EMEROO 11:33 → 3BNU 12:27
PROVIDERS: ADMIT Student in an Organized Health Care Education/Training Program; ATTEND Student in an Organized Health Care Education/Training Program